=== PATIENT | male | born 1980 | race Caucasian/White ===

== ENCOUNTER 2021-08-01 11:19 | Emergency (ER) | payer OTHER, SELFPAY ==
[2021-08-01 11:20] VITALS: BP 160/87; PULSE 86; RESP 17; TEMP 36.2; O2SAT 99; BMI 25.7
--- NOTE | 2021-08-01 11:33 | EDS_ITS ---
HPI History of Present Illness Chief Complaint: Laceration Narrative Narrative: Patient presents with injury to his left tibia/fibula area. He states that he was loading things into a dumpster, and went to jump up, and his right foot slipped. He had his left anterior tibial area on a metal edge. He continued to work but noticed that he was still having pain. He saw a laceration and thought that perhaps it was down to the bone. He denies falling, hitting his head, or loss of consciousness. No other injury. He has pain in his left anterior tibial area. He does not take blood thinners. No significant past medical history. He is unsure of his last tetanus immunization. [facility] Home Medications NK 08/01/21 [History Last Taken Unknown] Allergy/AdvReac Type Severity Reaction Status Date / Time No Known Allergies Allergy Verified 08/01/21 11:19 Social History Smoking Status: Never smoker ROS ROS ED ROS Narrative Constitutional: No fever, no chills. HEENT: No sore throat. No neck pain. No loss of vision. No rhinorrhea. Cardiovascular: No chest pain. No palpitations. No pedal edema. Respiratory: No cough, no shortness of breath. Abdominal: No abdominal pain. No nausea. No vomiting. Genitourinary: No dysuria. No hematuria. Musculoskeletal: No myalgias. No arthralgias. Anterior left lower leg pain with laceration. Neurologic: No headaches. No dizziness. No lightheadedness. Skin: No rash. No change in color. Positive laceration to left anterior tibial surface. Psychiatric: No depression. No anxiety. EXAM Physical Exam Narrative Exam Narrative: Afebrile. Vital signs noted. ECS 15. ABCs intact. HEENT: Normocephalic. Atraumatic. PERRL, EOMI. Neck soft and supple. No point tenderness or step off. Cardiovascular: Regular rate and rhythm. No murmurs, rubs, or gallops appreciat ed. Respiratory: No tachypnea. Lungs clear to auscultation bilaterally. Gastrointestinal: Abdomen soft, nontender, with normoactive bowel sounds. No rebound or guarding. Neurological: Awake. Alert. Nonfocal, nonlateralizing. Skin: No rash. Normal color. No pallor. +2 cm laceration left anterior tibial surface. Minimal bony tenderness to palpation under laceration. No crepitance. Musculoskeletal: No pedal edema. Full range of motion extremities. Laceration as noted above. Full range of motion left knee and left ankle. Palpable dorsalis pedis pulse. Const Vital Signs: 08/01/21 11:20 Temperature 97.2 F L Temperature Source Temporal Pulse Rate 86 Respiratory Rate 17 Blood Pressure 160/87 H Blood Pressure Mean 111 Pulse Ox 99 Oxygen Delivery Method Room Air MDM MDM MDM Narrative Medical decision making narrative: Patient was administered ibuprofen for pain. Given the mechanism of action and bony tenderness x-rays were obtained of the left tibia/fibula. 2 view x-ray interpreted by myself shows no evidence of fracture. He was informed of the risk of infection and scarring and acknowledges an understanding. He was also administered an Adacel immunization. His wound was cleansed. See procedure note for details. A total of 7 four- point 0 Ethilon sutures were inserted without difficulty. Patient tolerated procedure well. I feel he can be discharged safely home with follow-up. He was referred to a primary care provider as none was listed, or follow-up with the primary care provider of his choice in 10 days for suture removal. He was told to look for signs of infection. Disposition is discharged home in improved and stable condition. Radiography Diagnostic Testing: Clinical Impression(s) from Imaging Studies Tibia/Fibula X-Ray 08/01/21 11:39 IMPRESSION: No acute fracture or dislocation identified in the left leg. at 1156 Reported and signed by: Lynne Venegas MD Electronically Signed: Lynne Venegas MD at 11:55 EDT , Procedures Lacerations Left lower extremity: Length: 1.18 in Depth: Skin Shape: Linear Prep: Sterile Conditions and Shure-Clens Laceration repair: Irrigated, Lidocaine (1%) and Local Number of Sutures/[place]: 7 Suture Information: Ethilon, Simple and 4-0 Comment: Patient tolerated procedure well Discharge Plan Triage Chief Complaint: Laceration ED Provider: Larry Villalobos Dx/Rx/DC Orders Clinical Impression: Laceration of left lower leg, Fall, Contusion of left lower leg Instructions: ED Contusion, Lower Extremity, ED Laceration: All Closures Prescriptions: No Action NK RF: 0 Primary Care Provider: Care Physician,No Primary Referrals: Jay Marquez MD [STAFF PHYSICIAN] - 10 Day for suture removal Care Physician,No Primary [Primary Care Provider] - Activity Restrictions/Additional Instructions: Follow-up with your primary care physician in 10 days for suture removal, or you can return to the emergency department as needed. Disposition Disposition: Home, Self Care
[2021-08-01] MEDS: Ibuprofen 400 MG Tablet 800 MG PO (11:35)
--- NOTE | 2021-08-01 11:39 | RAD_ITS ---
HISTORY: trauma, pain. TECHNIQUE: XR Tibia/Fibula 2 Views. Number of images including paperwork: 4. COMPARISON: None. FINDINGS: OSSEOUS STRUCTURES: No acute fracture. Small bone island in the distal tibial diaphysis. JOINT SPACES: Maintained. No dislocation. SOFT TISSUES: No radiopaque foreign body identified. RAD/Tibia & Fibula 2 Views IMPRESSION: No acute fracture or dislocation identified in the left leg. at 1156 Reported and signed by: Lynne Venegas MD Electronically Signed: Lynne Venegas MD at 11:55 EDT ,
[2021-08-01] MEDS: Diphth,Pertuss(Acell),Tet Vac 0.5 ML Vial IM (12:02)
[2021-08-01] MEDS: Lidocaine 1% (20 ml mdv) 20 ML Vial INFILT (12:03)
[2021-08-01 12:40] VITALS: PULSE 76; RESP 15; O2SAT 98
== END 2021-08-01 12:42 | disposition home or self-care (01) ==
PROVIDERS: Emergency Provider Emergency Medicine; Visit Provider Emergency Medicine
DX: S81.812A Laceration without foreign body, left lower leg, initial encounter (principal); W26.8XXA Contact with other sharp object(s), not elsewhere classified, initial encounter; Y93.39 Activity, other involving climbing, rappelling and jumping off; Y99.9 Unspecified external cause status; Y92.9 Unspecified place or not applicable; Z23 Encounter for immunization
CPT/HCPCS: 12001; 73590; 90715; 96372; 99284